=== PATIENT | male | born 1965 | race Caucasian/White ===

== ENCOUNTER 2018-07-13 18:06 | Emergency (ER) | payer OTHER ==
[~2018-07-13] VITALS: Ht 180.3 cm; Wt 88.6 kg
[2018-07-13 18:13] VITALS: TEMP 96.9
[2018-07-13 18:31] LABS: BASO # 0.1 (0.0-0.2); BASO % 0.5 % (0.0-2.0); EOS # 0.6 (0.0-0.7); GRAN # 6.9 (1.4-6.5); GRAN % 37.1 % (42.2-75.2); HEMOGLOBIN 17.3 g/dl (13.5-18.0); LYMPH # 9.2 (1.2-3.4); LYMPH % 49.3 % (20.0-51.0); MEAN CELL VOLUME 98 fl (80.0-100.0); MEAN CORPUSCULAR HEMOGLOBIN 33 pg (27.0-31.0); MEAN CORPUSCULAR HGB CONC 33 g/dl (33.0-37.0); MEAN PLATELET VOLUME 9.2 fl (7.4-10.4); MONO # 1.8 (0.1-0.6); MONO % 9.8 % (1.7-9.3); PLATELET COUNT 385 K/mm3 (130-400); RED BLOOD COUNT 5.33 M/mm3 (4.20-5.60); REDCELL DISTRIBUTION WIDTH-CV 12.3 % (11.5-14.5)
[2018-07-13 18:34] LABS: HEMATOCRIT 52.4 % (42.0-52.0)
[2018-07-13 18:38] LABS: ALANINE AMINOTRANSFERASE 39 U/L (21-72); ALBUMIN 5.5 gm/dL (3.5-5.0); ALCOHOL(ethanol),MEDICAL < 10 mg/dL; ALKALINE PHOSPHATASE 71 U/L (50-136); ANION GAP 31 mmol/L (7-16); AST,SGOT 59 U/L (15-37); BILIRUBIN,TOTAL 0.7 mg/dL (0.0-1.0); BLOOD UREA NITROGEN 19 mg/dL (9-20); CALCIUM 9.9 mg/dL (8.4-10.2); CHLORIDE 104 mmol/L (98-107); CREATININE, serum 1.59 mg/dL (0.66-1.25); GLUCOSE 111 mg/dL (74-106); POTASSIUM 3.8 mmol/L (3.4-5.0); SODIUM 144 mmol/L (137-145); TOTAL PROTEIN 8.8 gm/dL (6.4-8.2)
[2018-07-13 18:39] LABS: CARBON DIOXIDE 9 mmol/L (22-30)
[2018-07-13 18:54] LABS: PROLACTIN 53.8 ng/mL (3.7-17.9)
[2018-07-13 20:45] VITALS: BP 143/88; PULSE 103
[2018-07-13 20:49] LABS: COLLECTION METHOD CLEAN CATCH
[2018-07-13 21:05] LABS: PH 5 (5-8); SQUAMOUS EPITHELIAL None Seen /hpf; URINE APPEARANCE Hazy; URINE BACTERIA None Seen /hpf; URINE BILIRUBIN Negative (NEGATIVE); URINE BLOOD 1+ (NEGATIVE); URINE COLOR Yellow; URINE GLUCOSE Negative (NEGATIVE); URINE KETONE Negative (NEGATIVE); URINE LEUKOCYTE ESTERASE Negative (NEGATIVE); URINE NITRATE Negative (NEGATIVE); URINE PROTEIN(semi-quant) 1+ (NEGATIVE); URINE RBC 0-2 /hpf; URINE UROBILINOGEN Negative (NEGATIVE)
== END 2018-07-13 21:27 | disposition home or self-care (01) ==
LOC: COL.ER 18:06
PROVIDERS: Emergency Medicine
DX: R56.9 Unspecified convulsions (principal); R00.0 Tachycardia, unspecified; N28.9 Disorder of kidney and ureter, unspecified; F17.210 Nicotine dependence, cigarettes, uncomplicated
CPT/HCPCS: J2060; J7030